=== PATIENT | male | born 1985 | race African-American/Black ===

== ENCOUNTER 2019-12-19 11:50 | Emergency (ER) | payer OTHER ==
[~2019-12-19] VITALS: Ht 182.9 cm; Wt 69.0 kg
[2019-12-19] MEDS ORDERED: NAPROSYN500 MG PO (12:46)
[2019-12-19] MEDS ORDERED: NORFLEX100 MG PO (12:46)
[2019-12-19 13:10] VITALS: BP 117/77
== END 2019-12-19 13:10 | disposition home or self-care (01) ==
LOC: ER 11:50
DX: S16.1XXA Strain of muscle, fascia and tendon at neck level, initial encounter (principal); M54.6 Pain in thoracic spine; V89.2XXA Person injured in unspecified motor-vehicle accident, traffic, initial encounter; Y93.89 Activity, other specified; Y92.89 Other specified places as the place of occurrence of the external cause; Y99.8 Other external cause status